=== PATIENT | female | born 1970 | race Caucasian/White ===

== ENCOUNTER 2017-11-18 05:03 | Emergency (ER) | payer SELFPAY ==
--- NOTE | 2017-11-18 06:07 | ED ---
Adult Trauma - HPI Summary HPI Summary: Patient here with multiple areas of pain after falling down the stairs earlier tonight. She reports she was up going to the bathroom which was in the basement (stairs were concrete). She missed the last step and fell, landing on her legs and left side and ultimately hitting the left side of her face. She denies loss of consciousness however has a headache and felt paresthesias on the left side of her face along with nausea immediately after this happened as well as the sensation to move her bowels. Sensation is returning to her face and nausea has resolved. She denies photophobia, change in vision, vomiting, memory change, confusion. Her neck is a little stiff on the left but otherwise no pain with movement or palpation. She is mostly concerned about her left elbow/forearm as this is quite painful to move and touch. She holds it guarded in a 90 position close to her body. She reports some paresthesias in her fingers however she is able to feel my touch and associate engineer without difficulty. She denies weakness or numbness. No pain in her shoulder, wrist, fingers. Additionally, she reports left hip pain. She admits she has a history of left hip pain however this is worse since the fall. She is able to stand and ambulate independently however reports pain in her hip with weightbearing and range of motion. Denies numbness tingling or weakness down her legs and no change in bowel or bladder habits. Feels stiff in general throughout her body. Tried icing her forearm prior to arrival. Has not tried any medications yet. She lives in [place] with her fiance but has been here in [place] staying with her friend for vacation. - History of Current Complaint Chief Complaint: EDExtremityUpper Stated Complaint: LT ARM INJURY/FALL Time Seen by Provider: 11/18/17 05:43 Hx Obtained From: Patient, Family/Art Department Head - female friend Pain Intensity: 2 - Allergy/Home Medications Allergies/Adverse Reactions: Allergies Allergy/AdvReac Type Severity Reaction Status Date / Time Sulfa (Sulfonamide Allergy Hives Verified 11/18/17 05:15 Antibiotics) PMH/Surg Hx/FS Hx/Imm Hx Previously Healthy: Yes Endocrine/Hematology History: Denies: Hx Anticoagulant Therapy, Hx Blood Disorders Musculoskeletal History: Reports: Other Musculoskeletal History - Lt hip pain, chronic Infectious Disease History: No Infectious Disease History: Denies: Traveled Outside the [place] in Last 30 Days - Family History Known Family History: Positive: Diabetes - father - Social History Occupation: Employed Full-time - teacher Lives: With Family - fiance Alcohol Use: Weekly - 3 x week in summer Hx Substance Use: No Substance Use Type: Reports: None Hx Tobacco Use: No Smoking Status (MU): Never Smoked Tobacco Review of Systems Constitutional: Negative Negative: Fatigue Eyes: Negative Negative: Photophobia, Blurred Vision, Diplopia ENT: Negative Negative: Epistaxis, Dental Pain Cardiovascular: Negative Negative: Chest Pain Respiratory: Negative Negative: Shortness Of Breath Gastrointestinal: Negative Negative: Abdominal Pain, Vomiting, Diarrhea, Nausea Negative: incontinence Positive: Arthralgia, Myalgia, Decreased ROM, Edema Skin: Negative Positive: Headache, Paresthesia. Negative: Weakness, Numbness, Syncope, Slurred Speech Psychological: Normal All Other Systems Reviewed And Are Negative: Yes Physical Exam Triage Information Reviewed: Yes Vital Signs On Initial Exam: Initial Vitals Temp Pulse Resp BP Pulse Ox 98 F 97 16 147/97 97 11/18/17 05:07 11/18/17 05:07 11/18/17 05:07 11/18/17 05:07 11/18/17 05:07 Vital Signs Reviewed: Yes Appearance: Positive: Well-Appearing, Pain Distress - mild at rest - worse w/ movement of Lt arm and Lt hip, Obese Skin: Positive: Warm, Skin Color Reflects Adequate Perfusion, Dry - no open wounds/bruising Head/Face: Positive: Normal Head/Face Inspection - atraumatic Eyes: Positive: Normal, EOMI, CHARLI, Conjunctiva Clear ENT: Positive: Normal ENT inspection, Hearing grossly normal, Pharynx normal - mucosa moist Dental: Negative: Dental Fracture @ Neck: Positive: Supple, Nontender Respiratory/Lung Sounds: Positive: Breath Sounds Present Cardiovascular: Positive: Pulses are Symmetrical in both Upper and Lower Extremities Musculoskeletal: Positive: Strength/ROM Intact - Lt fingers, wrist, shoulder, cervical spine, lumbar spine, hips, Pain @ - can't ilicit pain w/ palpation of humerus, elbow or forearm but pt reports pain midshaft of forearm with supination Lt wrist and extension of Lt elbow; hip NTTP however body habitus may limit exam Neurological: Positive: Normal, Sensory/Motor Intact, Alert, Oriented to Person Place, Time, CN Intact II-III, Reflexes Intact Psychiatric: Positive: Normal Procedures - Splinting Left Upper Extremity Hand-Made Type: fiberglass Splint: posterior long arm Pre-Proc Neuro Vasc Exam: normal Post-Proc Neuro Vasc Exam: normal Diagnostics - Vital Signs Vital Signs Temp Pulse Resp BP Pulse Ox 11/18/17 05:07 98 F 97 16 147/97 97 - Laboratory Lab Statement: Any lab studies that have been ordered have been reviewed, and results considered in the medical decision making process. Adult Trauma Course/Dx - Course Course Of Treatment: Wet reads. Elbow XR: closed radial head fracture along articular surface w/ effusion. Forearm and Humerus XR's: w/o acute fx, dislocation. Hip XR: no acute findings. splint and sling placed - pt tolerated well. Ct brain: no acute findings. Danger s/sx reviewed w/ pt and friend who is a nurse. Also explained if when XR/CT final reads return, she will receive a call if there are any discrepancies. - Diagnoses Provider Diagnoses: Closed fracture of head of left radius Discharge - Sign-Out/Discharge Documenting (check all that apply): Patient Departure - Discharge Plan Condition: Stable Disposition: HOME Prescriptions: Ibuprofen TAB* [Motrin TAB* 800 MG] 800 mg PO Q8HR PRN #20 tab PRN Reason: Pain Patient Education Materials: Elbow Fracture (ED), How to Use a Sling (ED), Contusion in Adults (ED), Splint Care (ED) Forms: *Work Release Referrals: Toni Hoskins DO [Doctor of Osteopathy] - Additional Instructions: REST, ICE, ELEVATE AND KEEP SPLINT CLEAN, DRY AND IN PLACE UNTIL SEEN BY ORTHOPEDICS. Call orthopedics today to schedule follow-up. Take your CD image of XR's with you to appointment. You may take ibuprofen alternating with acetaminophen as needed for pain. Keep arm in sling when out and about but remove from sling to stretch shoulder throughout the day to prevent "frozen shoulder". It is also important that you move your fingers to prevent swelling, stiffness. When wearing your sling, make sure to have your hand above your heart. *If you develop numbness, tingling, weakness, swelling or skin discoloration, loosen GUILLERMO wrap and elevate arm for 20 minutes. If symptoms persist, return to ED NOTE: your final imaging reads will be available later today. If anything is different from your diagnoses here now, you will receive a call with updates. - Billing Disposition and Condition Condition: STABLE Disposition: Home
[2017-11-18] MEDS ORDERED: Ibuprofen TAB* 800 MG PO ONE (07:26)
[2017-11-18 08:18] VITALS: BP 148/108
--- NOTE | 2017-11-18 08:23 | RAD ---
INDICATION: Intracranial injury. Fall. COMPARISON: None TECHNIQUE: Noncontrast axial source images were acquired from the skull base to the vertex. FINDINGS: Ventricles/sulci: The ventricles and cisterns are normal in size and configuration for age. Brain parenchyma: There is no acute appearing focal parenchymal finding, evidence of intracranial mass, or intracranial mass effect. There is at least one area of well-circumscribed decreased attenuation in the left temporal lobe which is likely a prominent Virchow Elena space. Intracranial hemorrhage:None. Extra-axial spaces: There are no abnormal extra axial fluid collections or evidence of extra-axial mass. Calvarium: There is no calvarial fracture or other calvarial abnormality. Scalp: There is no evidence of scalp or extracalvarial soft tissue abnormality. Paranasal sinuses/mastoid: The paranasal sinuses and mastoid air cells are clear. Other: None. IMPRESSION: SUSPECT PROMINENT LEFT-SIDED VIRCHOW ELENA SPACE. NO ACUTE INTRACRANIAL FINDINGS.
--- NOTE | 2017-11-18 08:58 | RAD ---
HISTORY: Lt hip pain after fall COMPARISONS: None VIEWS: 3, Frontal view of the pelvis with frontal and frog-leg views of the left hip FINDINGS: BONE DENSITY: Normal. BONES: There is no displaced fracture. JOINTS: There is no arthropathy. ALIGNMENT: There is no dislocation. SOFT TISSUES: Unremarkable. OTHER FINDINGS: Metallic jewelry is noted along the lower abdomen. IMPRESSION: NO RADIOGRAPHIC EVIDENCE FOR HIP FRACTURE. X-RAYS MAY BE NEGATIVE WITH NONDISPLACED HIP FRACTURE, IF THERE IS PERSISTENT CLINICAL CONCERN, RECOMMEND CONSIDERATION OF MRI. IN THE SETTING OF CONTRAINDICATION TO MRI OR LIMITATION IN EMERGENT ACCESS TO MRI, CT WOULD BE SUGGESTED.
--- NOTE | 2017-11-18 08:59 | RAD ---
HISTORY: Fall w/ pain/swelling midshaft COMPARISONS: Left elbow dated November 18, 2012 VIEWS: 2, Frontal and lateral views of the left forearm FINDINGS: BONE DENSITY: Normal. BONES: There is nondisplaced fracture of the radial head with articular extension. JOINTS: There is no arthropathy. ALIGNMENT: There is no dislocation. SOFT TISSUES: Unremarkable. OTHER FINDINGS: None. IMPRESSION: NONDISPLACED RADIAL HEAD FRACTURE
--- NOTE | 2017-11-18 09:08 | RAD ---
INDICATION: LEFT elbow pain post fall. COMPARISON: No relevant prior exams available on the [facility] PACS for comparison. TECHNIQUE: AP, lateral, and oblique views LEFT elbow. REPORT: Displaced anterior fat pad consistent with joint effusion. Longitudinal fracture in the radial head with only minimal articular surface discontinuity. Negative for significant impaction. No additional fracture. Normal articular alignment. Unremarkable soft tissue contours. IMPRESSION: #. Grossly nondisplaced radial head fracture. Associated joint effusion.
--- NOTE | 2017-11-18 09:32 | RAD ---
HISTORY: fall with distal pain, left arm pain COMPARISONS: None VIEWS: 2, Frontal internal rotation and external rotation views of the left humerus FINDINGS: BONE DENSITY: Normal. BONES: There is no displaced fracture. JOINTS: There is mild osteoarthritis of the AC joint. ALIGNMENT: There is no dislocation. SOFT TISSUES: Unremarkable. OTHER FINDINGS: None. IMPRESSION: NO ACUTE OSSEOUS INJURY. IF SYMPTOMS PERSIST, RECOMMEND REPEAT IMAGING.
== END 2017-11-18 08:17 | disposition home or self-care (01) ==
LOC: ED 05:03
DX: S52.92XA Unspecified fracture of left forearm, initial encounter for closed fracture (principal); R51 Headache; R20.0 Anesthesia of skin; W10.9XXA Fall (on) (from) unspecified stairs and steps, initial encounter; Y92.9 Unspecified place or not applicable
CPT/HCPCS: 70450; 99282; A9270-GY